=== PATIENT | female | born 1935 | race Caucasian/White ===

== ENCOUNTER 2021-09-19 12:08 | Inpatient (IN) | payer MEDICARE, MEDICAID ==
[~2021-09-19] VITALS: Ht 157.5 cm; Wt 60.2 kg
[2021-10-18] MEDS ORDERED: B COMPLEX #11 TA1 (12:09)
[2021-10-18] MEDS ORDERED: CIPRO 500MG TA500 MG (12:10)
[2021-10-18] MEDS ORDERED: GOOD SENSE LAC3000 U (12:10)
[2021-10-18] MEDS ORDERED: FISH OIL CONCEN1 SG2 (12:13)
[2021-10-18] MEDS ORDERED: LASIX 20MG TABL20 MG (12:14)
[2021-10-18] MEDS ORDERED: GLUCOSAMINE/CHO1 CA5 (12:15)
[2021-10-18] MEDS ORDERED: KRILL OIL (12:17)
[2021-10-18] MEDS ORDERED: CLARITIN 1010 MG/TAB (12:19)
[2021-10-18] MEDS ORDERED: [UNRECOGNIZED DRUG - OTHER] (12:20)
[2021-10-18] MEDS ORDERED: SELENIUM (12:20)
[2021-10-18] MEDS ORDERED: POTASSIUM CITRATE (12:20)
[2021-10-18] MEDS ORDERED: [UNRECOGNIZED DRUG - OTHER] (12:21)
[2021-10-18] MEDS ORDERED: VITAMINC1000TA (12:21)
[2021-10-18] MEDS ORDERED: VITAMINE200 (12:22)
[2021-10-18] MEDS ORDERED: ZINC16.7 MG (12:22)
[2021-10-18] MEDS ORDERED: ACTALIN (12:23)
[2021-10-19] VITALS (11 sets, daily range): BP systolic 120–177; BP diastolic 56–81; PULSE 69–82; TEMP 97.5–99.1
[2021-10-19] MEDS ORDERED: CLEANSE (08:27)
[2021-10-19] MEDS ORDERED: INFANTS AQU400 IU/ML (08:29)
[2021-10-19] MEDS ORDERED: VITAMIN D (08:30)
[2021-10-19] MEDS ORDERED: STRONTIUM (08:34)
--- NOTE | 2021-10-19 08:45 | NUR ---
PT was assisted out of bed, to wheechair, then to bathroom by Priya DEL VALLE and claim review medical director Renetta; PT is with Renetta in the bathroom who states will assist and verbalized understanding to use red cord if needed.
--- NOTE | 2021-10-19 09:11 | NUR ---
DR KAYLYN, and OR, RN have spoken with the PT and dog daycare provider.
--- NOTE | 2021-10-19 09:21 | NUR ---
0915 - Verbal orders recieved from Roles for CBC and CMP stat for pre-op
[2021-10-19 09:33] LABS: BASO % 0.4 % (0.0-2.0); EOS # 0.1 K/mm3 (0.0-0.7); EOS % 0.7 % (0.0-4.0); GRAN # 5.1 K/mm3 (1.4-6.5); GRAN % 72.4 % (42.2-75.2); HEMATOCRIT 39.3 % (37.0-47.0); HEMOGLOBIN 12.9 g/dl (12.5-16.0); LYMPH # 1.4 K/mm3 (1.2-3.4); LYMPH % 19.5 % (20.0-51.0); MEAN CELL VOLUME 92 fl (80.0-100.0); MEAN CORPUSCULAR HEMOGLOBIN 30 pg (27-31); MEAN CORPUSCULAR HGB CONC 33 g/dl (33.0-37.0); MEAN PLATELET VOLUME 10.3 fl (7.4-10.4); MONO # 0.5 K/mm3 (0.1-0.6); MONO % 6.6 % (1.7-9.3); PLATELET COUNT 190 K/mm3 (130-400); RED BLOOD COUNT 4.26 M/mm3 (4.10-5.30); REDCELL DISTRIBUTION WIDTH-CV 13.3 % (11.5-14.5)
[2021-10-19 09:55] LABS: ALBUMIN 3.8 gm/dL (3.4-4.8); BILIRUBIN,TOTAL 0.5 mg/dL (0.2-1.2); CALCIUM 9.3 mg/dL (8.4-10.2); CREATININE, serum 0.79 mg/dL (0.57-1.11); POTASSIUM 4.1 mmol/L (3.5-4.5); TOTAL PROTEIN 6.9 gm/dL (6.2-8.1)
--- NOTE | 2021-10-19 10:02 | NUR ---
PT took single R sided hearing aid to OR. Nara DEL VALLE contacted and confirmed. Vicente barksdale taped.
--- NOTE | 2021-10-19 12:32 | NUR ---
PT TO ROOM 330 PER BED WITH REPORT FROM BREANA COPS. PT IS DROWSEY BUT AROUSES TO VERBAL. LUNGS COARSE ALL OTERO. MIDLINE INCISION CDI COVERED WITH GAUZE AND MEDIPORE TAPE. IV TO LFA WITH NS TO GRAVITY AT THIS TIME. SPECIAL POLICE SILVIA AT BEDSIDE.
--- NOTE | 2021-10-19 20:14 | NUR ---
PT ATE DINNER TRAYS X2. COMPLAINS OF LOWER ABD PAIN AND ASKS FOR PERCOCET BY NAME. MEDICATED WITH SCHEDULED HS MEDS INCLUDING OXYCODONE 5MG PO AT THIS TIME. HAS SMALL TRANSVERSE INCISION TO LOWER ABD. IVF TO RT HAND INFUSING WITHOUT PROBLEM. HAS SCDS ON. SOLANO TO BSD WITH YELLOW URINE. CALL LIGHT WITHIN REACH.
--- NOTE | 2021-10-19 23:28 | NUR ---
TAKES SCHEDULED MOTRIN AND ES TYLENOL WITHOUT PROBLEM.
[2021-10-20 03:24] VITALS: BP 112/51; PULSE 67; TEMP 98.5
--- NOTE | 2021-10-20 05:45 | NUR ---
SCHEDULED AM MEDS GIVEN. PT HAS RESTED WELL THIS SHIFT. SOLANO WITH YELLOW URINE. DRSG TO LOW ABD D/I. READY FOR BREAKFAST.
[2021-10-20 08:00] VITALS: BP 139/50; PULSE 61; TEMP 98.4
[2021-10-20 11:20] VITALS: BP 113/61; PULSE 63; TEMP 98.9
--- NOTE | 2021-10-20 12:38 | NUR ---
SW met with patient and clinical care coordinator Renetta Preston [phone] was present during intake. Patient stated that she currently does not have any next of kin, due to family recently passing away in [place] due to a car accident. She does have a local family member that she does not talk to nor hear from. Patient desired to provide her two care givers Renetta Preston and Neelima Ruth [phone], and friend/neighbor Rosita [phone] as point of contacts. Patient states that she lives alone in [place], utilizes a walker and a wheelchair, PCP is Dr. Landers, and pharmacy is [facility]. Patient provides that she does not have anyone appointed as her DPOA/HC and would like information on how to appoint someone. SW provided and explained DPOA/HC documentation to patient to review. Patient stated that she would like to look over information and get back to the case management team. Patient states that her plan is to return to her home upon DC. SW will continue to follow. DC plan: home, may need skilled
--- NOTE | 2021-10-20 12:50 | NUR ---
Chaplain graham and visited with patient.
[2021-10-20 16:00] VITALS: BP 119/46; PULSE 65; TEMP 97.8
--- NOTE | 2021-10-20 20:00 | NUR ---
PT UP IN W/C AT BEDSIDE. IS ALERT AND ORIENTED X4. HAS INT TO RT HAND. WORRIED THAT THE HOSPITAL DOESN'T HAVE INCONTINENT SUPPLIES SHE IS USED TO WEARING A DIAPER LIKE PAD AT NIGHT. ENCOURAGED TO USE BSC FOR VOIDING.
[2021-10-20 20:04] VITALS: BP 109/52; PULSE 66; TEMP 98.6
--- NOTE | 2021-10-20 21:33 | NUR ---
PT ASSISTED TO BSC THEN TO BED WITH ONE ASSIST AND GAIT BELT/WALKER. VOIDS ON BSC WITHOUT PROBLEM. TAKES HS MEDS INCLUDING OXYCODONE. REMOVED ABD DRSG, INCISION DRY. PT HAS BLE EDEMA PRESENT.
--- NOTE | 2021-10-20 23:00 | NUR ---
PT REFUSED SCHEDULED ES TYLENOL AND MOTRIN AT THIS TIME.
[2021-10-21] VITALS (7 sets, daily range): BP systolic 120–151; BP diastolic 53–86; PULSE 66–87; TEMP 97.3–98.8
--- NOTE | 2021-10-21 03:36 | NUR ---
PT INCONTINENT OF URINE, YONATHAN CARES PROVIDED.
[2021-10-21] MEDS ORDERED: CIPRO 500MG TA500 MG PO (10:37)
[2021-10-21] MEDS ORDERED: IBU600 MG PO (10:37)
[2021-10-21] MEDS ORDERED: ROXICODONE 55 MG/TAB PO (10:38)
--- NOTE | 2021-10-21 12:36 | NUR ---
SW informed that patient would need referrals sent out. Referrals sent to [facility]- , [facility]- (staff stated they were full, but could send referrals over in case and opening occured) and [facility]-fax [phone]. SW will continue to follow.
--- NOTE | 2021-10-21 21:38 | NUR ---
PT IN BED. USING [place] FOR INCONTINENCE. PT TAKES HS MEDS, INCLUDING PAIN MED FOR SLEEP. PT IS ALERT AND ORIENTED X4. INT TO RT HAND. BLE WITH LESS SWELLING TONIGHT.
[2021-10-22 03:45] VITALS: BP 151/64; PULSE 64; TEMP 97.9
--- NOTE | 2021-10-22 04:00 | NUR ---
PT ASKING FOR MELATONIN. NONE ORDERED. PT AWARE.
[2021-10-22 07:56] VITALS: BP 133/61; PULSE 67; TEMP 98.3
--- NOTE | 2021-10-22 09:39 | NUR ---
LUPIS contacted [facility] and [facility] to follow up on referral. They are both full. Michaela, at [facility], states to check back tomorrow after their swing bed meeting. LUPIS attempted to contact Aniket at [facility]. LUPIS left her a voicemail. LUPIS met with the patient to update on referrals and discuss another preference. The patient states that she has heard of [facility] and would be interested in them. LUPIS presented and read the IM form outloud to her. The patient verbalized understanding and signed the form. LUPIS provided her with a copy. LUPIS contacted and faxed a referral to Madison at [facility]. LUPIS then received a phone call fowesley Marcial at [facility]. She states that she did not receive the referral. LUPIS faxed the referral to Aniket at [phone]. Awaiting screens. *Discharge plan: SNF or SB*
--- NOTE | 2021-10-22 10:51 | NUR ---
Aniket, with [facility], reports that the [facility] closed a year ago. She continues to be the coordinator for [facility] though. Aniket reports that they are declining the patient for swing bed and do not feel like they can meet her needs.
[2021-10-22 12:00] VITALS: BP 149/52; PULSE 66; TEMP 98
--- NOTE | 2021-10-22 15:17 | NUR ---
PATIENT ALERT AND ORIENTED. VSS. PATIENT HERE FOR EXPLORATORY LAP OF RIGHT TUBE/OVARY REMOVAL. PATIENT REPORTS PAIN 5/10. INCISION CDI. IV TO RIGHT HAND INT, FLUSHES WELL. PAITENT IN BED AWAITING SHOWER. CALL LIGHT WITHIN REACH.
[2021-10-22 15:20] VITALS: BP 126/69; PULSE 64; TEMP 98.2
--- NOTE | 2021-10-22 15:45 | NUR ---
LUPIS contacted and faxed a referral to Ravinder at [facility]. LUPIS contacted Enrrique at [facility]. Enrrique reports that they are more of a long-term care facility. They can do therapy, but not as a frequent as a swing bed or SNF. She states that they would probably not be an option for the patient. Madison, at [facility], reports that they have declined the patient. Ravinder, at [facility], reports that they can accept the patient, but would want the DPOA-HC completed. LUPIS met with the patient to update and to address the DPOA-HC. The patient states that she would like to complete one, but is unsure of who to designate right now. She would like to check to see if her Office Electrician in [place] would be willing to do it. The patient contacted her jehovah's witness while this SW was in the room. The receptionist/telephone operator reports that [employer]ian Ryan is busy right now, but she left him a message and he will contact the patient, once available. The patient states that she would trust her friend, Rosita, to be her DPOA-HC. This SW assisted the patient with contacting Rosita. Rosita answered and we asked her about being the patient's DPOA-HC. Rosita asked why the patient's godson cannot do it. The patient informed her how her godson does not stay in contact with her and not reliable. Rosita reports that she does not have a car right now and would not be able to be the patient's DPOA-HC at this time. LUPIS updated Ravinder at [facility]. Ravinder reports that they are able to accept the patient today. LUPIS updated the patient and she is agreeable with going there. LUPIS attempted to contact and update the patient's caregiver through [employer], Renetta Preston. LUPIS left her a voicemail. The patient is to discharge today, 10/22, to [facility] [place] for a skilled stay. Transportation was arranged at 1600, via AV. LUPIS updated the patient and RN of the time. No additional needs at this time.
--- NOTE | 2021-10-22 17:21 | NUR ---
PATIENT IV DC'D. PATIENT ESCORTED OUT VIA WHEELCHAIR WITH EMPLOYEE FROM [facility].
== END 2021-10-22 16:48 | disposition swing bed (61) | DRG 743 ==
LOC: INPTSU 10-19 07:48 → SURG 10-19 07:48 → OB 10-19 09:00 → SURG 10-19 12:00
PROVIDERS: Nurse Anesthetist, Certified Registered; ADMIT Obstetrics & Gynecology
PROC: 0UT50ZZ Resection of Right Fallopian Tube, Open Approach (ICD-10-PCS; principal; 2021-10-19 09:00)
PROC: 0UT00ZZ Resection of Right Ovary, Open Approach (ICD-10-PCS; 2021-10-19 09:00)
DX: D27.0 Benign neoplasm of right ovary (principal); G62.9 Polyneuropathy, unspecified; Z20.822 Contact with and (suspected) exposure to COVID-19; M19.90 Unspecified osteoarthritis, unspecified site; Z88.2 Allergy status to sulfonamides; Z88.8 Allergy status to other drugs, medicaments and biological substances; Z88.0 Allergy status to penicillin; Z91.013 Allergy to seafood; Z86.11 Personal history of tuberculosis
CPT/HCPCS: A4314; J0690; J1170; J1885; J2310; J2370; J2405; J2550; J2704; J3010; J7120

== ENCOUNTER → 2021-10-26 | Outpatient (CLI) | payer MEDICARE, MEDICAID ==
[~2021-10-26] MED LIST: ACTALIN; B COMPLEX #11 TA1; CIPRO 500MG TA500 MG; CIPRO 500MG TA500 MG PO; CLARITIN 1010 MG/TAB; CLEANSE; FISH OIL CONCEN1 SG2; GLUCOSAMINE/CHO1 CA5; GOOD SENSE LAC3000 U; IBU600 MG PO; INFANTS AQU400 IU/ML; KRILL OIL; LASIX 20MG TABL20 MG; POTASSIUM CITRATE; ROXICODONE 55 MG/TAB PO; SELENIUM; STRONTIUM; VITAMIN D; VITAMINC1000TA; VITAMINE200; ZINC16.7 MG; [UNRECOGNIZED DRUG - OTHER]; [UNRECOGNIZED DRUG - OTHER]
== END ==
LOC: COL.RAD 13:25
DX: J98.4 Other disorders of lung (principal); Z86.11 Personal history of tuberculosis

== ENCOUNTER → 2021-10-31 | Outpatient (CLI) | payer MEDICARE, MEDICAID ==
[2021-10-31 15:25] LABS: ALBUMIN 3.3 gm/dL (3.4-4.8); BILIRUBIN,TOTAL 0.3 mg/dL (0.2-1.2); CALCIUM 8.9 mg/dL (8.4-10.2); CREATININE, serum 0.8 mg/dL (0.57-1.11); POTASSIUM 3.5 mmol/L (3.5-4.5); TOTAL PROTEIN 6.4 gm/dL (6.2-8.1)
== END ==
LOC: ZLAB.STJ 15:00
PROVIDERS: Internal Medicine
DX: I11.0 Hypertensive heart disease with heart failure (principal); D64.9 Anemia, unspecified